=== PATIENT | male | born 1980 | race Caucasian/White ===

== ENCOUNTER 2021-06-20 12:40 | Emergency (ER) | payer MEDICAID ==
[~2021-06-20] VITALS: Ht 165.1 cm; Wt 77.3 kg
[2021-06-20] MEDS ORDERED: PERTUSS(ACELL),DIPH,TET VAC/PF 0.5 ML SYRINGE IM. ONE (15:30)
[2021-06-20] MEDS ORDERED: BACITRACIN 0.9 GM PACKET OINTMENT TP ONE (15:30)
[2021-06-20] MEDS ORDERED: POVIDONE-IODINE 10% 15 ML SOLUTION UD TP ONE (15:30)
[2021-06-20] MEDS ORDERED: LIDOCAINE 1% 10 ML VIAL SQ ONE (15:30)
[2021-06-20 16:47] VITALS: BP 134/73
[2021-06-20] MEDS ORDERED: CEPH-558 PO (16:49)
[2021-06-20] MEDS ORDERED: MUPI15CR12 TP (16:49)
== END 2021-06-20 16:57 | disposition home or self-care (01) ==
LOC: EMS 12:40
DX: S61.211A Laceration without foreign body of left index finger without damage to nail, initial encounter (principal); S61.215A Laceration without foreign body of left ring finger without damage to nail, initial encounter; F17.210 Nicotine dependence, cigarettes, uncomplicated; W45.8XXA Other foreign body or object entering through skin, initial encounter; Y93.89 Activity, other specified; Y92.89 Other specified places as the place of occurrence of the external cause; Y99.8 Other external cause status
CPT/HCPCS: 12001; 90471; 90715; 99283; J3490

== ENCOUNTER 2021-06-22 18:39 | Emergency (ER) | payer MEDICAID ==
[~2021-06-22] VITALS: Ht 167.6 cm; Wt 79.5 kg
[~2021-06-22 18:39] MED LIST: CEPH-558 PO; MUPI15CR12 TP
[2021-06-22 20:20] VITALS: BP 129/77
== END 2021-06-22 21:39 | disposition home or self-care (01) ==
LOC: EMS 18:48
DX: S61.211D Laceration without foreign body of left index finger without damage to nail, subsequent encounter (principal); S61.215D Laceration without foreign body of left ring finger without damage to nail, subsequent encounter; W27.8XXD Contact with other nonpowered hand tool, subsequent encounter; F17.210 Nicotine dependence, cigarettes, uncomplicated
CPT/HCPCS: 99281; 99282; Z7502